=== PATIENT | female | born 1990 | race Caucasian/White ===

== ENCOUNTER 2018-02-16 13:42 | Emergency (ER) | payer OTHER | END 2018-02-16 16:23 | disposition home or self-care (01) | LOC: ERS 13:42 | DX: S50.02XA Contusion of left elbow, initial encounter (principal); S80.10XA Contusion of unspecified lower leg, initial encounter; H53.8 Other visual disturbances; V89.2XXA Person injured in unspecified motor-vehicle accident, traffic, initial encounter | CPT/HCPCS: 99283 ==